=== PATIENT | male | born 1960 | race African-American/Black ===

== ENCOUNTER 2016-04-07 11:26 | Inpatient (IN) | payer OTHER ==
[~2016-04-07] VITALS: Ht 190.5 cm; Wt 127.0 kg
[2016-04-07 16:00] VITALS: BP 124/92
[2016-04-07] MEDS ORDERED: Zolpidem 5mg tab ORAL PRN (18:00)
[2016-04-07 18:34] LABS: BASOPHILS % (AUTO) 2.7 % (0.0-2.0); EOSINOPHILS % (AUTO) 2.4 % (0.0-3.0); LYMPHOCYTES % (AUTO) 33.6 % (20.0-45.0); MEAN CORPUSCULAR HEMOGLOBIN 27.3 PG (27.0-31.0); MEAN CORPUSCULAR HGB CONC 32.1 G/DL (32.0-36.0); MEAN CORPUSCULAR VOLUME 85 FL (80-99); MEAN PLATELET VOLUME 7.9 FL (6.5-10.1); MONOCYTES % (AUTO) 10.6 % (1.0-10.0); NEUTROPHILS % (AUTO) 50.6 % (45.0-75.0); PLATELET COUNT 212 K/UL (150-450); RED BLOOD COUNT 4.71 M/UL (4.70-6.10); RED CELL DISTRIBUTION WIDTH 12.7 % (11.6-14.8); WHITE BLOOD COUNT 6.4 K/UL (4.8-10.8)
[2016-04-07 18:48] LABS: ANION GAP 14 (5-15); CALCIUM 9.3 mg/dL (8.6-10.2); CARBON DIOXIDE 28 mEQ/L (20-30); CHLORIDE 97 mEQ/L (98-107); CREATININE 1.1 mg/dL (0.7-1.2); GLOMERULAR FILTRATION RATE > 60 mL/min (>60); HEMOLYSIS 4; POTASSIUM 4.2 mEQ/L (3.4-4.9); SODIUM 139 mEQ/L (135-145)
[2016-04-07 19:00] VITALS: BP 142/82
[2016-04-07] MEDS ORDERED: IBUPROFEN600 MG ORAL (20:03)
[2016-04-07] MEDS: Vancomycin 1.5 GM in D5W 325 ML IVPB SCH (20:46)
[2016-04-07] MEDS ORDERED: Heparin 5000 units/ml inj SUBQ SCH (21:00)
[2016-04-07] MEDS ORDERED: Norco 10mg/325mg tab ORAL PRN (21:15)
[2016-04-07] MEDS: Piperacillin/Tazobactam 3.375 GM in D5W 110 ML IVPB SCH (23:11)
[2016-04-08] VITALS: BP 125/74
[2016-04-08 04:00] VITALS: BP 115/76
[2016-04-08] MEDS: Piperacillin/Tazobactam 3.375 GM in D5W 110 ML IVPB SCH ×3 (05:18→22:33)
[2016-04-08] MEDS: Vancomycin 1.5 GM in D5W 325 ML IVPB SCH ×2 (08:07→20:08)
[2016-04-08 08:14] VITALS: BP 114/71
[2016-04-08] MEDS: Xarelto 15mg tab ORAL SCH ×2 (11:27→17:38)
[2016-04-08 12:15] VITALS: BP 113/88
--- NOTE | 2016-04-08 12:26 | Diagnostic Imaging Report ---
APPROVED REPORT CPT Code: 94730 Present Symptoms Lower Extremity Pain: Bilateral Lower Extremity Edema: Bilateral Past History DVT :Left RIGHT LEG: Venous imaging reveals a patent deep venous system. There is no evidence of thrombus within the femoral, popliteal or tibial segments. The greater saphenous vein is also within normal limits. Doppler indicates normal spontaneous flow within these segments. LEFT LEG: Venous imaging reveals acute thrombus in the popliteal vein. 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 Collateral vein noted anterior to the superficial femoral artery. Remainder of the deep venous system within normal limits. No evidence of thrombus in the calf veins. Greater saphenous vein also within normal limits. JOSE Herman was notified of abnormal results at 2110 hrs.
[2016-04-08 16:00] VITALS: BP 118/66
[2016-04-08 19:00] VITALS: BP 125/78
--- NOTE | 2016-04-08 19:44 | History & Physical ---
History and Physical History & Physicial 55 year old male admitted with worsening left leg swelling and erythema. Patient noted pain and now being admitted for cellulitis. Patient now with evidence of acute DVT PMH reviewed MEDS noted ALL noted Social History; noted Physical WDWN NAD clear breath sounds bilaterally without rhonchi or wheeze [id number] without MRG NABS nontender no HSM no CC right leg edema with some blistering nonfocal Labs Test 04/07/16 18:15 White Blood Count 6.4 K/UL (4.8-10.8) Red Blood Count 4.71 M/UL (4.70-6.10) Hemoglobin 12.8 G/DL (14.2-18.0) Hematocrit 40.0 % (42.0-52.0) Mean Corpuscular Volume 85 FL (80-99) Mean Corpuscular Hemoglobin 27.3 PG (27.0-31.0) Mean Corpuscular Hemoglobin Concent 32.1 G/DL (32.0-36.0) Red Cell Distribution Width 12.7 % (11.6-14.8) Platelet Count 212 K/UL (150-450) Mean Platelet Volume 7.9 FL (6.5-10.1) Neutrophils (%) (Auto) 50.6 % (45.0-75.0) Lymphocytes (%) (Auto) 33.6 % (20.0-45.0) Monocytes (%) (Auto) 10.6 % (1.0-10.0) Eosinophils (%) (Auto) 2.4 % (0.0-3.0) Basophils (%) (Auto) 2.7 % (0.0-2.0) Sodium Level 139 mEQ/L (135-145) Potassium Level 4.2 mEQ/L (3.4-4.9) Chloride Level 97 mEQ/L (98-107) Carbon Dioxide Level 28 mEQ/L (20-30) Anion Gap 14 (5-15) Blood Urea Nitrogen 13 mg/dL (7-23) Creatinine 1.1 mg/dL (0.7-1.2) Estimat Glomerular Filtration Rate > 60 mL/min (>60) Glucose Level 93 mg/dL (74-106) Calcium Level 9.3 mg/dL (8.6-10.2) ASSESSMENT cellulitis DVT right leg pain PLAN IV antibiotics anticoagulation pain control dc once improved MIKHAIL MOISE Apr 08, 2016 19:44
[2016-04-09] VITALS: BP 109/70
[2016-04-09 04:00] VITALS: BP 115/85
[2016-04-09] MEDS: Piperacillin/Tazobactam 3.375 GM in D5W 110 ML IVPB SCH ×3 (05:01→22:00)
[2016-04-09 07:43] VITALS: BP 126/71
[2016-04-09] MEDS: Vancomycin 1.5 GM in D5W 325 ML IVPB SCH ×2 (08:27→20:00)
[2016-04-09] MEDS: Xarelto 15mg tab ORAL SCH ×2 (08:28→17:39)
--- NOTE | 2016-04-09 08:58 | General Progress Note ---
Assessment/Plan Assessment/Plan cellulitis DVT PLAN same follow up exam Irwinsteveivy Millero [facility] cream Subjective Allergies: Coded Allergies: No Known Allergies (Verified , 03/29/11) Subjective improved Objective Last 24 Hour Vital Signs Date Time Temp Pulse Resp B/P Pulse Ox O2 Delivery O2 Flow Rate FiO2 04/09/16 07:43 98.3 62 21 126/71 97 Room Air 04/09/16 04:00 97.5 83 19 115/85 97 Room Air 21 04/09/16 00:00 97.6 63 18 109/70 97 Room Air 21 04/08/16 19:00 97.2 68 18 125/78 98 Room Air 04/08/16 16:00 97.9 66 19 118/66 Room Air 04/08/16 12:15 97.7 60 21 113/88 95 Room Air Intake and Output 04/08/16 04/09/16 19:00 07:00 Intake Total 987.5 ml 740 ml Output Total 750 ml Balance 987.5 ml -10 ml Intake Oral 960 ml 740 ml IV Total 27.5 ml Output Urine Total 750 ml # Voids 2 9 Laboratory Tests 04/09/16 06:45: Vancomycin Level Trough 10.9 Height (Feet): 6 Height (Inches): 3.00 Weight (Pounds): 280 Objective WDWN NAD clear breath sounds bilaterally without rhonchi or wheeze [id number] without MRG NABS nontender no HSM no CC; minimal right leg edema and cellulitic changes nonfocal MIKHAIL MOISE Apr 09, 2016 08:58
[2016-04-09 11:55] VITALS: BP 126/66
[2016-04-09] MEDS: Triamcinolone 0.5% Cr 15gm TOPIC SCH ×2 (13:24→17:41)
[2016-04-09 16:00] VITALS: BP 114/74
[2016-04-09 20:00] VITALS: BP 116/72
[2016-04-09] MEDS ORDERED: Tubing IV Secondary IV ONE (22:55)
[2016-04-09] MEDS ORDERED: NS 275ml ONE (22:55)
[2016-04-10 04:00] VITALS: BP 126/79
[2016-04-10] MEDS: Piperacillin/Tazobactam 3.375 GM in D5W 110 ML IVPB SCH ×3 (06:39→22:25)
[2016-04-10 08:00] VITALS: BP 114/61
[2016-04-10] MEDS: Vancomycin 1.5 GM in D5W 325 ML IVPB SCH ×2 (08:42→20:09)
[2016-04-10] MEDS: Triamcinolone 0.5% Cr 15gm TOPIC SCH ×3 (09:06→17:58)
[2016-04-10] MEDS: Xarelto 15mg tab ORAL SCH ×2 (09:06→17:58)
[2016-04-10 12:00] VITALS: BP 124/67
[2016-04-10 16:00] VITALS: BP 108/68
[2016-04-10 20:00] VITALS: BP 116/75
--- NOTE | 2016-04-10 21:59 | General Progress Note ---
Assessment/Plan Assessment/Plan cellulitis DVT PLAN same follow up exam Teenaivy Adams [facility] cream dc in am Subjective Allergies: Coded Allergies: No Known Allergies (Verified , 03/29/11) Subjective improving Objective Last 24 Hour Vital Signs Date Time Temp Pulse Resp B/P Pulse Ox O2 Delivery O2 Flow Rate FiO2 04/10/16 16:00 96.6 62 19 108/68 96 Room Air 04/10/16 12:00 97.9 69 19 124/67 100 Room Air 04/10/16 11:37 97.2 04/10/16 08:00 97.2 69 19 114/61 97 Room Air 04/10/16 04:00 97.7 67 20 126/79 98 Intake and Output 04/09/16 04/10/16 19:00 07:00 Intake Total 1182.5 ml 360 ml Balance 1182.5 ml 360 ml Intake Oral 720 ml 360 ml IV Total 462.5 ml # Voids 2 Height (Feet): 6 Height (Inches): 3.00 Weight (Pounds): 280 Objective WDWN NAD clear breath sounds bilaterally without rhonchi or wheeze [id number] without MRG NABS nontender no HSM no CC; minimal right leg edema and cellulitic changes nonfocal MIKHAIL MOISE Apr 10, 2016 21:59
[2016-04-11] VITALS: BP 120/79
[2016-04-11 04:00] VITALS: BP 105/60
[2016-04-11] MEDS: Piperacillin/Tazobactam 3.375 GM in D5W 110 ML IVPB SCH (05:35)
[2016-04-11 08:00] VITALS: BP 132/76
[2016-04-11] MEDS: Xarelto 15mg tab ORAL SCH (08:31)
[2016-04-11] MEDS: Triamcinolone 0.5% Cr 15gm TOPIC SCH (08:31)
[2016-04-11] MEDS: Vancomycin 1.5 GM in D5W 325 ML IVPB SCH (08:32)
--- NOTE | 2016-04-11 09:12 | General Progress Note ---
Assessment/Plan Assessment/Plan cellulitis DVT PLAN same follow up exam after dc Xarelto x 6 months bactrim x 10 days dc today venous Us after dc Subjective Allergies: Coded Allergies: No Known Allergies (Verified , 03/29/11) Subjective improving Objective Last 24 Hour Vital Signs Date Time Temp Pulse Resp B/P Pulse Ox O2 Delivery O2 Flow Rate FiO2 04/11/16 08:00 96.8 62 20 132/76 97 Room Air 04/11/16 04:00 97.5 74 20 105/60 96 Room Air 04/11/16 00:00 97.3 89 20 120/79 97 Room Air 04/10/16 20:00 97.6 79 20 116/75 96 Room Air 04/10/16 16:00 96.6 62 19 108/68 96 Room Air 04/10/16 12:00 97.9 69 19 124/67 100 Room Air 04/10/16 11:37 97.2 Intake and Output 04/10/16 04/11/16 19:00 07:00 Intake Total 387.5 ml 600 ml Balance 387.5 ml 600 ml Intake Oral 360 ml 600 ml IV Total 27.5 ml # Voids 3 3 Height (Feet): 6 Height (Inches): 3.00 Weight (Pounds): 280 Objective WDWN NAD clear breath sounds bilaterally without rhonchi or wheeze [id number] without MRG NABS nontender no HSM no CC; right leg edema and cellulitic changes much improved nonfocal MIKHAIL MOISE Apr 11, 2016 09:12
[2016-04-11] MEDS ORDERED: BACTRIM-DS1 EA ORAL (10:51)
[2016-04-11] MEDS ORDERED: XARELTO10 MG ORAL ×2 (10:53→10:54)
--- NOTE | 2016-04-13 09:50 | Discharge Summary ---
Discharge Summary Hospital Course Date of Admission Apr 07, 2016 at 15:14 Date of Discharge Apr 11, 2016 at 11:14 Admitting Diagnosis HPI Mario Mead is a 55 year old male who was admitted on Apr 07, 2016 at 15:14 for Cellulitis, Right Knee,Leg Hospital Course dc summary #[id number] Discharge Medications Continued Medications: Rivaroxaban (Xarelto*) 10 Mg Tablet 15 MG ORAL BID, #32 TAB 0 Refills Rivaroxaban (Xarelto*) 10 Mg Tablet 20 MG ORAL DAILY, #30 TAB 0 Refills Trimethoprim/Sulfamethoxazole (Bactrim Ds Tablet) 1 Each Tablet 1 TAB ORAL TWICE A DAY, #20 TAB Discontinued Medications: Ibuprofen* (Motrin*) 600 Mg Tablet 800 MG ORAL DAILY PRN for For Pain, #30 TAB Discharge Condition Upon Discharge: stable Discharge Disposition Patient was discharged to Home (01) Discharge Diagnoses: Discharge Instructions Discharge Instructions Special Instructions I have been assigned to complete a D/C Summary on this account. I was not involved in the patient management Isi Neal NP (Vanchtein) Apr 13, 2016 09:50
--- NOTE | 2016-04-13 23:08 | Discharge Summary 2 SIG ---
DATE OF ADMISSION: 04/07/2016 DATE OF DISCHARGE: 04/11/2016 REASON FOR HOSPITALIZATION: A 55-year-old male was presented in the office with a worsening left leg swelling and erythema. The patient noted to have increased pain. The patient was sent for admission and treatment of IV antibiotics on the cellulitis. The patient's venous duplex done was done in the hospital revealed acute DVT, left lower extremity. ADMITTING DIAGNOSES: 1. Acute deep venous thrombosis, left lower extremity. 2. Cellulitis, left lower extremity. 3. Left leg pain. HISTORY OF STAY: The patient admitted. The patient was on anticoagulation with Xarelto. IV antibiotics provided for cellulitis. Blood culture negative. No leukocytosis. No fever. Pain management provided. GI prophylaxis provided. The patient was stable for discharge. DISCHARGE DIAGNOSES: 1. Acute deep venous thrombosis, left lower extremity. 2. Cellulitis, left lower extremity. 3. Left lower extremity pain. DISCHARGE MEDICATIONS: The patient will need a total of six months of Xarelto for DVT and repeat ultrasound afterwards. The patient already started on Xarelto while in the hospital. He will need 15 mg twice a day for an additional 16 days and then 20 mg daily for rest of the time for a total of six months. Prescription provided for oral Bactrim to continue for 10 days. DISCHARGE INSTRUCTIONS: The patient discharged home. Follow up with the primary medical doctor. Isidro Franco M.D. I have been assigned to dictate discharge summary on this account and I was not involved in the patient's management. Isi Neal (vanchtein) NAnita MCDONALD: MICHAEL JOB#: [id number] CC:
[2016-04-29] MEDS ORDERED: Xarelto 10mg tab ORAL SCH (09:00)
== END 2016-04-11 11:14 | disposition home or self-care (01) | DRG 300 ==
LOC: 4E 15:14
DX: I82.402 Acute embolism and thrombosis of unspecified deep veins of left lower extremity (principal); L03.116 Cellulitis of left lower limb
CPT/HCPCS: 36415; 80048; 80202; 85025; 87040; 93970